=== PATIENT | male | born 1945 | race Caucasian/White ===

== ENCOUNTER 2016-03-07 10:04 | Day surgery (SDC) | payer MEDICARE ==
[~2016-03-07] VITALS: Ht 172.7 cm; Wt 82.0 kg
[~2016-03-07 10:04] MED LIST: 0.9% Sodium Chloride 1,000 ML IV SCH; ASPI-13 PO; CHOL100043 PO; CYAN500 PO; DOXA8TAB73 PO; LOSA100T29 PO; OMEP20TA24 PO; ONDA-54 PO; SILD100T PO; Sodium Chloride LOK Flush 10 mL Syringe IV PRN; fentaNYL-PF 50 mCg/mL 2 mL Inj IVPUSH PRN
[2016-03-07] MEDS ORDERED: ASPI325T32 PO (10:29)
[2016-03-07 10:30] VITALS: BP 129/79; PULSE 80; RESP 14; O2SAT 97
[2016-03-07 11:42] VITALS: BP 97/63; PULSE 65; RESP 16; O2SAT 93
[2016-03-07 11:52] VITALS: BP 96/61; PULSE 63; RESP 14; RESP 16; O2SAT 96; O2SAT 97
--- NOTE | 2016-03-07 11:53 | ENDO ---
[address] [address] ENDOSCOPY PROCEDURE PATIENT: OBED US : 1945 MR#: [id number] ADMIT: 03/07/2016 JOB ID: [id number] DATE OF SERVICE: 03/07/2016 PROCEDURE PERFORMED: Colonoscopy. INDICATIONS: Screening. ASA CLASSIFICATION: The patient's ASA classification is II. MALLAMPATI SCORE: Mallampati score was 2. MEDICATIONS: 1. Versed 5 mg. 2. Fentanyl 100 mcg. INSTRUMENT USED: [id number]. PREPARATION QUALITY: Good. PROCEDURE DETAILS: After informed consent was obtained, the patient was brought into the GI suite, where he was placed on oxygen via nasal cannula and monitored with continuous pulse oximeter, telemetry, and blood pressure monitoring. A time-out was performed. Then, he was placed in the left lateral decubitus position and medications were administered for sedation. Digital rectal exam with palpation of the prostate was performed which was unremarkable. The colonoscope was then inserted into the rectum and advanced under direct visualization to the cecum, which was identified by the presence of the ileocecal valve and appendiceal orifice. Once the cecum was reached, the colonoscope was withdrawn back into the rectum, as the mucosa and lumen were examined. In the rectum, retroflexion was performed. Following retroflexion, remaining air in the rectum was suctioned, and procedure was completed. FINDINGS: Normal exam from rectum to cecum. RECOMMENDATIONS: Repeat colonoscopy in 10 years, sooner if symptoms should dictate. COMPLICATIONS: None. ESTIMATED BLOOD LOSS: Zero.
[2016-03-07 12:00] VITALS: BP 112/70; PULSE 66; RESP 16; O2SAT 97
== END 2016-03-07 23:59 | disposition home or self-care (01) ==
LOC: END 10:04
PROVIDERS: ATTEND Internal Medicine Gastroenterology
DX: Z12.11 Encounter for screening for malignant neoplasm of colon (principal)
CPT/HCPCS: G0121; G0500; J2250; J7030

== ENCOUNTER 2016-04-11 01:57 | Emergency (ER) | payer MEDICARE ==
[~2016-04-11] VITALS: Ht 172.7 cm; Wt 81.8 kg
[~2016-04-11 01:57] MED LIST changes: -0.9% Sodium Chloride 1,000 ML IV SCH; +ASPI325T32 PO; -ONDA-54 PO; -Sodium Chloride LOK Flush 10 mL Syringe IV PRN; -fentaNYL-PF 50 mCg/mL 2 mL Inj IVPUSH PRN
[2016-04-11] MEDS ORDERED: 0.9% Sodium Chloride 1,000 ML IV ONE (02:02)
--- NOTE | 2016-04-11 02:02 | ED.REPORT ---
HPI-General Illness Date of Service Apr 11, 2016 ED Provider: Dr. Holden Barone M.D. A 70 year old male with a medical history including hypertension, ventral hernia , and GERD presents to the ED accompanied by his with LLQ abdominal pain onset a couple of hours prior to arrival. Associated symptoms include nausea, chills, and diaphoresis. The patient denies cough, vomiting, chest pain, or shortness of breath. The patient has recently been exercising excessively and not eating well. He was initially unable to answer questions due to pain but a full history was eventually obtained. Nursing Notes Stated Complaint: UNRESPONSIVE Nursing Notes Reviewed: Yes Allergies: Coded Allergies: hydromorphone HCl (Verified Allergy, Severe, Extrapyramidal Symptoms, 04/11) nausea, vomiting, BP droppped Penicillins (Verified Allergy, Unknown, 04/11/16) atorvastatin (Verified Allergy, Unknown, 04/11/16) dutasteride (Verified Allergy, Unknown, 04/11/16) silodosin (Verified Allergy, Unknown, 04/11/16) Scheduled Aspirin (Aspirin) 325 Mg Tablet 325 MG PO DAILY Aspirin/Calcium Carbonate/Mag (Aspirin Buffered) 325 Mg Tablet 325 MG PO DAILY Cholecalciferol (Vitamin D3) (Vitamin D) 1,000 Unit Tablet 1,000 UNIT PO DAILY Doxazosin Mesylate (Doxazosin Mesylate) 8 Mg Tablet 8 MG PO HS Losartan Potassium (Losartan Potassium) 100 Mg Tablet 100 MG PO DAILY Omeprazole Magnesium (Prilosec Otc) 20 Mg Tablet.dr 20 MG PO BID Tamsulosin (Flomax) 0.4 Mg Capsule 0.4 MG PO DAILY Scheduled PRN Ondansetron ODT (Ondansetron ODT) 8 Mg Tab.rapdis 8 MG PO QID PRN PRN For Nausea Sildenafil Citrate (Viagra) 100 Mg Tablet 100 MG PO UD PRN PRN for erectile dysfunction oxyCODONE-Acetaminophen 5-325 mg (oxyCODONE-Acetaminophen 5-325 mg) 1 Each Tablet 1-2 TAB PO Q6H PRN PRN For Pain Miscellaneous Medications Cyanocobalamin (Vitamin B12) 1,000 Mcg Tablet 1,000 MCG PO General Time Seen by MD: 02:02 Chief Complaint Abdominal pain Hx Obtained From: Patient Arrived By: Walk-in Sudden in Onset?: Yes Onset Occurred: 1 - 4 hours ago Symptom Duration: Since onset Location: : Abdomen Quality: Painful Severity: Current: Moderate Severity: Maximum: Moderate Associated with: Reports: Nausea, Denies: Fever Pertinent Negative: Relieved by nothing Context Related History: Reports Hernia Recent Healthcare: No recent doctor visit Past Medical History Past Medical History known midline hernia arthritis sleep apnea Ventral hernia without obstruction or gangrene Reports: GERD, Hypertension Past Surgical History none reported Smoking History Never Smoker Social History Alcohol Use: "Social" Other Social History: Good social support, , Local resident Ambulatory Status Independent Review of Systems Full Review of Systems Constitutional: Reports: Chills, Denies: Fever Respiratory: Denies: Non-productive cough, Shortness of breath Cardiovascular: Denies: Chest pain GI: Reports: Abdominal pain (LLQ), Nausea, Denies: Vomiting Skin: Reports Diaphoresis Complete sys rev & neg: except as marked. Physical Exam Vital Signs Vital Signs Date Time Temp Pulse Resp B/P Pulse Ox O2 Delivery O2 Flow Rate FiO2 04/11/16 06:21 36.2 76 16 124/76 99 04/11/16 04:03 65 16 116/74 100 Room Air 04/11/16 02:05 36.1 67 16 141/94 100 Room Air Initial VS: Reviewed Head / Eyes: Atraumatic, Normocephalic ENT: Conjunctiva normal, No scleral icterus Neck: Supple, Full range of motion Respiratory: Breath sounds normal, Clear to auscultation, No respiratory distress Cardiovascular: Regular rate & rhythm, Heart sounds normal Extremities: Vascular intact, Neuro intact, No swelling Skin: Warm, Dry, No cyanosis Neurologic: Alert, Oriented, Nonfocal Psychiatric: Mood/affect normal, Behavior normal, Normal thought content General/Constitutional: Awake, Alert Patient is initially unresponsive but then answers questions Patient is mcdermott Abdomen: Soft Tenderness/Guarding/Rebound: Positive: Tender LLQ... Ankle / Foot: Atraumatic Valgus deformity of toes Interpretation & Diagnostics Lab Results Interpretation Result Diagram: 04/11/16 02004/11/16 020 Test 04/11/16 02:00 White Blood Count 7.3th/mm3 (3.8-10.1) Red Blood Count 4.74mil/mm3 (4.40-5.80) Hemoglobin 14.8g/dL (13.8-17.2) Hematocrit 44.1% (41.0-50.0) Mean Corpuscular Volume 93.0fL (81-100) Mean Corpuscular Hemoglobin 31.2pg (27.0-35.0) Mean Corpuscular Hemoglobin Concent 33.6% (32.0-37.0) Red Cell Distribution Width 12.7% (12.3-15.4) Platelet Count 166bil/L (150-400) Neutrophils (%) (Auto) 68.4% (40-74) Lymphocytes (%) (Auto) 22.2% (14-46) Monocytes (%) (Auto) 8.7% (4-12) Eosinophils (%) (Auto) 0.1% (0-5) Basophils (%) (Auto) 0.3% (0-3) Prothrombin Time 10.4sec (8.1-12.5) Prothromb Time International Ratio 0.97ratio Sodium Level 143mEq/L (134-144) Potassium Level 3.6mEq/L (3.5-5.2) Chloride Level 105mEq/L (97-108) Carbon Dioxide Level 20mmol/L (18-29) Blood Urea Nitrogen 13mg/dL (8-27) Creatinine 1.11mg/dL (0.76-1.27) Estimat Glomerular Filtration Rate 69mL/min (>59) Glucose Level 147mg/dL (60-99) Lactic Acid Level 3.5mmol/L (0.4-2.0) Calcium Level 8.8mg/dL (8.5-10.1) Magnesium Level 2.0mg/dL (1.6-2.6) Total Bilirubin 0.4mg/dL (0.0-1.2) Aspartate Amino Transf (AST/SGOT) 14U/L (0-50) Alanine Aminotransferase (ALT/SGPT) 22U/L (0-44) Alkaline Phosphatase 61U/L (25-160) Total Protein 6.3g/dL (6.4-8.4) Albumin 3.6g/dL (3.4-5.0) Lipase 30U/L (13-60) ECG Interpretation ECG Interpretation: Sinus rhythm rate 63 Time: 02:05 Interpreted by: ED physician Normal ECG Interpretation: Normal ECG w/ rate of... CT Abd / Pelvis Interpretation CONCLUSION: Mild left hydronephrosis secondary to a 4.6 mm calculus in the proximal left ureter. There is also a 3 mm calculus in the right side of the bladder. The prostate gland is enlarged and contains calcification Cholelithiasis without CT evidence of cholecystitis. Transmitted to ED by Herrera Peralta M.D. 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 As it turns out, he was merely prostrate with pain. He complains of left flank pain and left abdominal pain. He proves to have a 4.6 mm stone high in the ureter on CT. Ultimately achieve reasonable pain relief. He is discharged home with Percocet, which she has taken before without allergic response. He also received Zofran, and was prescribed additional Zofran, Percocet, and Flomax. Referred to urology. Source of Hx: Old records Time of Eval: 03:21 Patient Status: Condition unchanged Re-Evaluation/Progress Note: Patient is hypoventilating and still in pain. Time of Eval: 04:16 Patient Status: Condition improved Re-Evaluation/Progress Note: Patient was ready to be discharged but began actively vomiting. Time of Eval: 05:55 Patient Status: Condition improved Re-Evaluation/Progress Note: Discussed with patient CT and lab results, diagnosis, and plan for discharge. Follow-up and return to the ER instructions given. Patient agrees with plan for care and all questions were addressed. Counseled Regarding: Diagnosis, Lab results, Need for follow-up, When/why to return to ED Discharge & Departure Shift Change Sign-Out Response to Therapy: Improved Primary Impression: Ureteral colic Additional Impression: Vomiting Disposition: Home Discharge Condition All VS Reviewed: Yes Condition: Improved Patient Instructions: Renal Colic (ED), Pancreatitis (ED) Additional Instructions: Percocet every four hours as needed for pain Zofran every six hours as needed for nausea Drink plenty of fluids and stay well-hydrated Flomax nightly until the stone has passed Call urology this morning for follow-up Return if pain is uncontrollable, nausea is uncontrollable, or if you develop fever or other new symptoms of concern. Referrals: Edgard Cole MD (PCP) Jesús Smith MD Attestation Portions of this note were transcribed by Marcelina Corado. I, Dr. Barone, personally performed the history, physical exam, and medical decision-making; I reviewed and confirmed the accuracy of the information in the transcribed note. Signed by: Gloria Hutchinson, 04/11/2016, 06:30 copies to: Edgard Cole MD; Jesús Smith MD, Christopher W MD Apr 11, 2016 02:02 MARCELINA CORADO Apr 11, 2016 04:27
[2016-04-11 02:05] VITALS: BP 141/94; PULSE 67; RESP 16; O2SAT 100
[2016-04-11] MEDS ORDERED: Pantoprazole 4 mg/mL 10 mL Inj IVPUSH ONE (02:05)
[2016-04-11] MEDS ORDERED: Ondansetron 2 mg/mL 2 mL Inj IVPUSH ONE ×2 (02:05→04:25)
[2016-04-11 02:08] LABS: BASOPHILS % (AUTO) 0.3 % (0-3); EOSINOPHILS % (AUTO) 0.1 % (0-5); MONOCYTES % (AUTO) 8.7 % (4-12); Mean Corpuscular Hemoglobin 31.2 pg (27.0-35.0); NEUTROPHILS % (AUTO) 68.4 % (40-74); Platelet Count 166 bil/L (150-400)
[2016-04-11 02:26] LABS: INR 0.97 ratio
[2016-04-11] MEDS: fentaNYL-PF 50 mCg/mL 2 mL Inj IVPUSH PRN ×3 (02:35→03:42)
[2016-04-11 04:03] VITALS: BP 116/74; PULSE 65; RESP 16; O2SAT 100
[2016-04-11] MEDS ORDERED: _oxyCODONE/APAP 5-325 mg Tablet PO PRN (04:05)
[2016-04-11] MEDS ORDERED: _Ondansetron ODT 4 mg Tablet PO PRN (04:05)
[2016-04-11] MEDS ORDERED: ONDA8TAB10 PO (04:13)
[2016-04-11] MEDS ORDERED: OXYC1TAB24 PO (04:13)
[2016-04-11] MEDS ORDERED: TAMS0.4C98 PO (04:13)
[2016-04-11] MEDS ORDERED: Promethazine Inj 12.5 MG in Dextrose 5%-Pha MIX 50 ML IV ONE (04:20)
[2016-04-11 06:21] VITALS: BP 124/76; PULSE 76; RESP 16; O2SAT 99
--- NOTE | 2016-04-11 08:30 | DRSVH ---
PROCEDURE: CT ABDOMEN AND PELVIS WITH CONTRAST ([id number]) INDICATIONS: llq pain TECHNIQUE: After the administration of intravenous contrast, 5 mm thick sections acquired from the diaphragm to the symphysis. 5 mm coronal and sagittal reformats were acquired. For radiation dose reduction, the following was used: automated exposure control, adjustment of mA and/or kV according to patient siz e. COMPARISON: CT CABG 02/03/2012 FINDINGS: Image quality: Excellent. ABDOMEN: Lung bases: Lung bases show mild atelectasis or scarring, right greater than left. Heart size is nor mal. Coronary artery calcifications are evident. The Solid organs: Liver and spleen are normal in size and enhancement. Gallbladder contains small depen dent stones, no abnormal wall thickening. Biliary system is non dilated. Pancreas enhances normally . No adrenal nodules. Kidneys demonstrate normal size and enhancement. There are simple appearing e xophytic and peripelvic cysts in the left kidney. A small calcification is present in the dependent p ortion of the left renal pelvis, image 40. The left kidney shows moderate hydronephrosis secondary to an obstructing 4 mm stone in the proximal left ureter, image 49, attenuation 379. The right kidney i s unremarkable. There is a 3 mm calcification in the right dependent portion of the urinary bladder, presumed to be a recently passed stone. The prostate is enlarged with dystrophic calcifications inclu ding a punctate calcification in the right posterior median lobe which invaginates the bladder base. Peritoneum and bowel: Bowel loops demonstrate normal wall thickness and caliber. No free fluid or a ir. Nodes and vessels: No retroperitoneal or mesenteric adenopathy by size criteria. Aorta and inferior vena cava are normal in size. Miscellaneous: Small fat filled periumbilical hernia. PELVIS: Genitourinary: Bladder wall thickness is normal. Miscellaneous: Small fat filled bilateral inguinal hernias, no adenopathy. Bones: No suspicious bony lesions. No vertebral body compression fractures. Degenerative disc disea se. IMPRESSION: 1. Left nephrolithiasis and hydronephrosis secondary to an obstructing 4 mm calculus in the proximal left ureter. 2. Simple-appearing left renal cysts. 3. Calcification in the dependent portion of the urinary bladder on the right. 4. Prostate enlargement. 5. Cholelithiasis. Findings are concordant with the preliminary report Dictated by: Riley Encinas M.D. on 04/11/2016 at 8:12 Approved by: Riley Encinas M.D. on 04/11/2016 at 8:28
== END 2016-04-11 04:14 | disposition home or self-care (01) ==
LOC: SED 01:57
DX: N23 Unspecified renal colic (principal); I10 Essential (primary) hypertension; K21.9 Gastro-esophageal reflux disease without esophagitis; Z79.82 Long term (current) use of aspirin; Z88.0 Allergy status to penicillin; Z88.5 Allergy status to narcotic agent; Z88.8 Allergy status to other drugs, medicaments and biological substances
CPT/HCPCS: 36415; 74177; 80053; 83605; 83690; 83735; 85025; 85610; 93005; 96361; 96374; 96375; 96376; 99285; J2405; J2550; J3010; J7030; Q9967